=== PATIENT | female | born 1935 | race Caucasian/White ===

== ENCOUNTER 2022-06-15 11:15 | Inpatient (IN) | payer MEDICARE ==
[~2022-06-15] VITALS: Ht 152.4 cm; Wt 53.5 kg
--- NOTE | 2022-06-15 11:15 | NUR ---
BIB [facility] FROM HOME HAD A GLF IN THE BATHROOM C/O R HIP AND LEG PAIN -KO NO BLOOD THINNERS, 100MCG FENTANYL GIVEN PL SQL PROGRAMMER BY BRENDA. PLACED IN BED, AAOX4, BREATHING EVEN AND UNLABORED SATURATING AT 97%RA, IN PAIN 10/10 PS.
[2022-06-15] MEDS ORDERED: oxyCODONE/APAP (5/325 MG) 1 UDTAB TABLET ONE (11:41)
[2022-06-15] MEDS ORDERED: oxyCODONE/APAP (5/325 MG) 1 UDTAB TABLET PO ONE (12:00)
--- NOTE | 2022-06-15 12:11 | NUR ---
X-RAY TECH AT BEDSIDE
--- NOTE | 2022-06-15 12:36 | NUR ---
COVID SWAB COLLECTED AND SENT TO LAB
--- NOTE | 2022-06-15 13:07 | NUR ---
SENT X-RAY IMAGES TO DR. HOLDER
[2022-06-15 13:32] LABS: CALCIUM, SERUM 9.3 mg/dL (8.5-10.1); CARBON DIOXIDE 25 mmol/L (21-32); CHLORIDE 104 mmol/L (98-107); CREATININE 0.9 mg/dL (0.6-1.3); GLUCOSE 118 mg/dL (74-106); POTASSIUM 4.1 mmol/L (3.5-5.1); SODIUM SERUM 138 mmol/L (136-145); UREA NITROGEN, BLOOD 11 mg/dL (7-18)
[2022-06-15 13:33] LABS: BASOPHILS % (AUTO) 0.2 % (0.0-2.0); EOSINOPHILS % (AUTO) 0.2 % (0.0-6.0); HEMATOCRIT 41 % (33-45); HEMOGLOBIN 13.3 g/dL (11.5-14.8); LYMPHOCYTES # (AUTO) 0.8 K/uL (0.8-4.8); LYMPHOCYTES % (AUTO) 6.4 % (20.0-44.0); MEAN CORPUSCULAR HGB CONC 33 g/dl (31.0-36.0); MEAN CORPUSCULAR VOLUME 95 fL (82-100); MONOCYTES # (AUTO) 0.6 K/uL (0.1-1.30); MONOCYTES % (AUTO) 4.7 % (2.0-12.0); NEUTROPHILS # (AUTO) 11.2 K/uL (1.8-8.9); NEUTROPHILS % (AUTO) 88.5 % (43.0-81.0); PLATELET COUNT (AUTO) 245 K/uL (150-450); RED BLOOD CELL COUNT(AUTO) 4.29 MIL/uL (4.0-5.2); WHITE BLOOD COUNT (AUTO) 12.7 K/uL (4.3-11.0)
--- NOTE | 2022-06-15 13:45 | NUR ---
DEANA FOR ADMITION BED IN PT
[2022-06-15] MEDS ORDERED: MORPHINE SULFATE INJ 2 MG/ML DISP.SYRIN IV ONE (14:00)
[2022-06-15] MEDS ORDERED: GABA-532 PO (14:14)
[2022-06-15] MEDS ORDERED: MORPHINE SULFATE INJ 4 MG/ML DISP.SYRIN ONE (14:24)
--- NOTE | 2022-06-15 14:25 | NUR ---
ORTHOPICK SURGEN AT BED SIDE SPOOK WITH PT AND PLAN OF CARE AND SURGERY PLAN
--- NOTE | 2022-06-15 14:45 | NUR ---
HAND OFF TO NIDHI. Luis RN TO ROOM 116-1 VIA JOSELITO SAUL VS
--- NOTE | 2022-06-15 14:47 | NUR ---
ORTHOBIC PROVIDER AT BED SIDE OK PT TO EAT
--- NOTE | 2022-06-15 15:45 | NUR ---
RN ADMITTING NOTE PATIENT WAS TRANSFERRED FROM THE ER WITH PRIMARY DIAGNOSIS OF RIGHT FEMUR FRACTURE , ORIF PROCEDURE SCHEDULED FOR TOMORROW AT 11 AM , CONSENTS SIGNED BY DAUGHTER. PATIENT IS ALERT , ORIENTED TIMES 4 , B EFORE THE FRACTURE WAS AMBULATORY .PATIENT IS ON ROOM AIR , BREATHING NON LABORED , 02 SAT 96 %.PUREWEK WAS ATTACHED , BED IS AT LOWEST POSITION , CALL LIGHT WITHIN REACH , SIDE RAILA ARE UP , WILL CONTINUE TO MONITOR.
[2022-06-15] MEDS ORDERED: Z GUARD REMEDY 4 OZ OINT TP PRN (16:00)
[2022-06-15] MEDS ORDERED: MAG HYDROX/AL HYDROX/SIMETH 30 ML UDC PO PRN (16:00)
[2022-06-15] MEDS ORDERED: MAGNESIUM HYDROXIDE 30 ML UDC PO PRN (16:00)
[2022-06-15] MEDS ORDERED: ONDANSETRON HCL/PF 4 MG/2 ML VIAL IVP PRN (16:00)
[2022-06-15] MEDS ORDERED: ACETAMINOPHEN 325 MG TABLET PO PRN (16:00)
[2022-06-15 16:20] VITALS: BP 134/78
[2022-06-15] MEDS: IV NS 0.9% 1,000 ML IV PRN (16:51)
--- NOTE | 2022-06-15 18:42 | NUR ---
RN CLOSING NOTE PATIENT WAS TRANSFERRED FROM THE ER WITH PRIMARY DIAGNOSIS OF RIGHT FEMUR FRACTURE , ORIF PROCEDURE SCHEDULED FOR TOMORROW AT 11 AM , CONSENTS SIGNED BY DAUGHTER. PATIENT IS ALERT , ORIENTED TIMES 4 , ON ROOM AIR , BREATHING NON LABORED , 02 SAT 96 %. BED IS AT LOWEST POSITION , CALL LIGHT WITHIN REACH , SIDE RAILS ARE UP , WILL ENDORSE FORENSIC PHOTOGRAPHER NURSE TO FALLOW POC
--- NOTE | 2022-06-15 19:30 | NUR ---
MS RN OPENING NOTES - RECEIVED PATIENT SLEEPING, EASY TO AROUSE. DAUGHTER PRESENT IN ROOM. A/O X4, AMHARIC SPEAKING. BREATHING EVEN AND NON-LABORED ON ROOM AIR. NOT IN APPARENT DISTRESS. C/O RIGHT HIP AND KNEE PAIN 08/25. HAS LEFT FOREARM IV ACCESS #20G WITH NS RUNNING AT 75 ML/HR. NO S/S OF INFILTRATION NOTED. HAS PUREWICK CONNECTED TO CONTINUOUS SUCTION. SAFETY PRECAUTIONS IN PLACE: BED LOCKED AND IN LOW POSITION, SIDE RAILS UP X2, CALL LIGHT WITHIN REACH. WILL CONTINUE PLAN OF CARE.
[2022-06-15 20:00] VITALS: BP 141/82
[2022-06-15] MEDS: MORPHINE SULFATE INJ 2 MG/ML DISP.SYRIN IV PRN (20:09)
--- NOTE | 2022-06-15 20:25 | NUR ---
ADMINISTERED PRN MORPHINE 4MG R/T RIGHT HIP AND KNEE PAIN 01/25. WILL CONTINUE TO MANAGE PAIN ORDERED. C/O BEING UNABLE TO PEE, LAST TIME PATIENT URINATED WAS AT 0900. BLADDER SCAN SHOWED >450 ML URINE RETENTION. NOTIFIED HOSPITALIST ZULAY, AWAITING FOR RESPONSE. Addendum: 06/15/22 at 2055 by September ETHEL TRUONG ORDERED INSERT FC. NOTED AND CARRIED OUT.
[2022-06-16] MEDS: MORPHINE SULFATE INJ 2 MG/ML DISP.SYRIN IV PRN ×2 (01:12→06:38)
[2022-06-16 04:00] VITALS: BP 104/47
[2022-06-16 05:58] LABS: BASOPHILS % (AUTO) 0.2 % (0.0-2.0); EOSINOPHILS % (AUTO) 0.1 % (0.0-6.0); HEMATOCRIT 35 % (33-45); HEMOGLOBIN 11.6 g/dL (11.5-14.8); LYMPHOCYTES # (AUTO) 1.6 K/uL (0.8-4.8); LYMPHOCYTES % (AUTO) 16.8 % (20.0-44.0); MEAN CORPUSCULAR HGB CONC 34 g/dl (31.0-36.0); MEAN CORPUSCULAR VOLUME 94 fL (82-100); MONOCYTES # (AUTO) 0.9 K/uL (0.1-1.30); MONOCYTES % (AUTO) 9.5 % (2.0-12.0); NEUTROPHILS # (AUTO) 6.9 K/uL (1.8-8.9); NEUTROPHILS % (AUTO) 73.4 % (43.0-81.0); PLATELET COUNT (AUTO) 204 K/uL (150-450); RED BLOOD CELL COUNT(AUTO) 3.68 MIL/uL (4.0-5.2); WHITE BLOOD COUNT (AUTO) 9.5 K/uL (4.3-11.0)
[2022-06-16 06:30] LABS: CALCIUM, SERUM 8.4 mg/dL (8.5-10.1); CREATININE 0.7 mg/dL (0.6-1.3); MAGNESIUM 1.9 mg/dL (1.8-2.4); PHOSPHORUS 3.3 mg/dL (2.5-4.9); POTASSIUM 3.8 mmol/L (3.5-5.1)
[2022-06-16] MEDS: IV NS 0.9% 1,000 ML IV PRN ×2 (06:42→18:16)
--- NOTE | 2022-06-16 07:15 | NUR ---
MS RN CLOSING NOTES - PATIENT RESTING IN BED. ABLE TO VERBALIZE NEEDS. NO ACUTE DISTRESS THROUGHOUT THE NIGHT. NO CARDIAC OR RESPIRATORY DISTRESS. VERBALIZED PAIN RELIEF FROM PRN MORPHINE SULFATE 4MG. LEFT FOREARM IV ACCESS INTACT, PATENT AND FLUSHING. HAS INDWELLING GONSALES CATHETER DRAINING CLEAR EUN URINE TO BAG BY GRAVITY. ALL DUE MEDS GIVEN AND NEEDS ATTENDED. PAIN CONTROL DONE PER MD ORDER. KEPT ON NPO. SAFETY PRECAUTIONS MAINTAINED. WILL ENDORSE TO NEXT SHIFT FOR ELBERT.
[2022-06-16 07:23] LABS: BILIRUBIN,URINE NEGATIVE (NEGATIVE); COLOR,URINE YELLOW (YELLOW); LEUKOCYTE ESTERASE ,URINE NEGATIVE (NEGATIVE); NITRITE, URINE NEGATIVE (NEGATIVE); PROTEIN,URINE NEGATIVE (NEGATIVE); UGLUCOSE NEGATIVE (NEGATIVE); UROBILINOGEN,URINE 0.2 EU/dL (0.2)
--- NOTE | 2022-06-16 07:40 | NUR ---
ms rn opening note pt resting in bed. pt alert and oriented x3-4. pt currently npo due to pending surgery. able to verbalize needs. pt has iv access. iv intact, patent and flushing well. no signs of pain or discomofrt noted at this time..pt has lew cathether in place by gravity. all safety emasures in place. call light within reach, bed locked at lowest position. side rails up x2.
[2022-06-16 08:00] VITALS: BP 130/58
[2022-06-16] MEDS ORDERED: POLYMYXIN B SULFATE 500,000 UNITS ONE (08:03)
[2022-06-16] MEDS ORDERED: ANESTHESIA TRAY IN PYXIS 1 EA TRAY MC ONE (08:03)
[2022-06-16] MEDS ORDERED: BUPIVACAINE 0.25% 75 MG/30 ML VIAL ONE (08:04)
[2022-06-16 08:37] LABS: WBC,URINE 0-2 /HPF (0-3)
[2022-06-16 08:38] LABS: BACTERIA,URINE Few /HPF (None Seen); SQUAMOUS EPITHELIAL CELL,UR Few /HPF (None Seen)
[2022-06-16] MEDS ORDERED: FENTANYL PF 250MCG/5ML AMPUL ONE (10:02)
[2022-06-16] MEDS ORDERED: SUCCINYLCHOLINE CHLORIDE 20 MG/ML VIAL ONE (10:03)
[2022-06-16] MEDS ORDERED: VANCOMYCIN 1 GM VIAL ONE (11:24)
[2022-06-16] MEDS ORDERED: HYDROMORPHONE INJ 2 MG/ML DISP.SYRIN ONE (11:26)
[2022-06-16] MEDS ORDERED: TRANEXAMIC ACID 1,000 MG/10 ML VIAL ONE (12:07)
[2022-06-16] MEDS ORDERED: HYDROCODONE/APAP 10/325MG TABLET PO PRN (15:00)
--- NOTE | 2022-06-16 15:18 | NUR ---
rn note pt is alert and oriented x4. pt came back from surgery with bp 124/78, hr 168, 02 94%, on 2 l nasal cannula saturating at 94%. temp 97.8 notified of high hr. ordered ekg stat
[2022-06-16 16:00] VITALS: BP 124/78
--- NOTE | 2022-06-16 19:05 | NUR ---
LIVESTOCK RANCH HAND OPENING NOTE RECEIVED PATIENT IN BED, A/O X3-4, TRINIDADIAN SPEAKING, ON ROOM AIR, BREATHING EVEN AND UNLABORED. ON TELE MONITOR ST WITH HR OF 112. NO DISTRESS/DISCOMFORT NOTED. IV ACCESS ON LEFT FOREARM # 20G, NS RUNNING AT 75 ML/HR, INTACT AND PATENT. HAS F/C DRAINING TO GRAVITY CLEAR, YELLOW URINE. RIGHT KNEE IMMOBILIZER NOTED, DRESSING IS CLEAN AND DRY POST SURGERY. SAFETY MEASURES IN PLACE: BED LOCKED AND IN LOWEST POSITION, SIDE RAILS UP X2, CALL LIGHT WITHIN REACH.
--- NOTE | 2022-06-16 19:55 | NUR ---
MS RN CLOSING NOTE PT AWAKE, ALERT AND ORIENTED X3-4. PT HAS IV ACCESS, PATENT, INTACT AND FLUSHING WELL. PT ON TELE MONITOR SINUS RHYTM 89. PT HAS FC DRAINING TO GRAVITY. PT HAS KNEE IMMOBILIZER ON RIGHT LOWER EXTREMITY. DRESSING CLEAN AND DRY AND POST SURGERY. ALL SAFETY MEASURES IN PLACE. CALL LIGHT WITHIN REACH. BED LOCKED AT LOWEST POSITION. SDIE RAILS UP X2. BED ALARM ON. ENDORSED TO PARTS COUNTERPERSON RN FOR CONUTIY OF CARE.
[2022-06-16 20:00] VITALS: BP 120/52
[2022-06-16] MEDS: ANCEF 1 GM/50 ML D5W IV SCH ×2 (21:36)
[2022-06-17] VITALS: BP 125/58
[2022-06-17] MEDS: ANCEF 1 GM/50 ML D5W IV SCH ×4 (03:10→11:46)
[2022-06-17 04:00] VITALS: BP 131/62
--- NOTE | 2022-06-17 07:03 | NUR ---
STABILIZER OPERATOR CLOSING NOTE PATIENT IN BED, ASLEEP, BUT EASY TO AROUSE, ON ROOM AIR, BREATHING EVEN AND UNLABORED. ON TELE MONITOR ST WITH HR OF 112. NO DISTRESS/DISCOMFORT NOTED. IV ACCESS ON LEFT FOREARM # 20G, NS RUNNING AT 75 ML/HR, INTACT AND PATENT. HAS F/C DRAINING TO GRAVITY CLEAR, YELLOW URINE. RIGHT KNEE IMMOBILIZER NOTED, DRESSING IS CLEAN AND DRY POST SURGERY. ALL DUE MEDS WERE GIVEN AND NEEDS ATTENDED. SAFETY MEASURES MAINTAINED: BED LOCKED AND IN LOWEST POSITION, SIDE RAILS UP X2, CALL LIGHT WITHIN REACH. WILL ENDORSE TO ONCOMING NURSE FOR ELBERT.
[2022-06-17 07:07] LABS: BASOPHILS % (AUTO) 0.1 % (0.0-2.0); HEMATOCRIT 29 % (33-45); HEMOGLOBIN 9.5 g/dL (11.5-14.8); LYMPHOCYTES # (AUTO) 0.7 K/uL (0.8-4.8); LYMPHOCYTES % (AUTO) 5.8 % (20.0-44.0); MEAN CORPUSCULAR HGB CONC 33 g/dl (31.0-36.0); MEAN CORPUSCULAR VOLUME 94 fL (82-100); MONOCYTES # (AUTO) 1.1 K/uL (0.1-1.30); MONOCYTES % (AUTO) 9.1 % (2.0-12.0); NEUTROPHILS # (AUTO) 10.8 K/uL (1.8-8.9); PLATELET COUNT (AUTO) 157 K/uL (150-450); RED BLOOD CELL COUNT(AUTO) 3.05 MIL/uL (4.0-5.2); WHITE BLOOD COUNT (AUTO) 12.7 K/uL (4.3-11.0)
[2022-06-17 07:16] LABS: CALCIUM, SERUM 7.7 mg/dL (8.5-10.1); CREATININE 0.7 mg/dL (0.6-1.3); POTASSIUM 3.4 mmol/L (3.5-5.1)
--- NOTE | 2022-06-17 07:30 | NUR ---
ms rn opening note pt resting in bed. pt alert and oriented x3-4. kuwaiti speaking. able to verbalize needs. pt has iv access. iv intact, patent and flushing well. no signs of pain or discomofrt noted at this time..pt has lew cathether in place by gravity. all safety emasures in place. call light within reach, bed locked at lowest position. side rails up x2.
[2022-06-17] MEDS: ENOXAPARIN SODIUM 40 MG/0.4 ML DISP.SYRIN SQ SCH (07:41)
[2022-06-17] MEDS: HYDROCODONE/APAP 5/325MG TABLET PO PRN ×2 (07:59→18:37)
[2022-06-17 08:00] VITALS: BP 129/73
[2022-06-17] MEDS ORDERED: POTASSIUM CHLORIDE 20 MEQ POWDER PACKET NG SCH (10:30)
[2022-06-17] MEDS: IV NS 0.9% 1,000 ML IV PRN (11:46)
[2022-06-17 12:00] VITALS: BP 105/45
[2022-06-17 16:00] VITALS: BP 107/41
--- NOTE | 2022-06-17 19:40 | NUR ---
RN OPENING NOTE PATIENT AWAKE IN BED W/ DAUGHTER AT BEDSIDE. A/OX4. NO S/S OF DISTRESS, BREATHING WITHOUT DIFFICULTY ON 2L NC (FOR COMFORT). RFA #22 INTACT AND PATENT W/ NS 75ML/HR. TELE READS ST 110. SAFETY MEASURES IN PLACE: BED LOCKED AND AT LOWEST POSITION, MID-FOWLERS, RAILS UP X2, CALL SULLIVAN WITHIN REACH. WILL CONTINUE TO MONITOR PATIENT.
--- NOTE | 2022-06-17 19:47 | NUR ---
RN closing NOTE PATIENT AWAKE IN BED W/ DAUGHTER AT BEDSIDE. A/OX4. NO S/S OF DISTRESS, NO SIGNS OF PAIN OR DISCOMOFRT NOTED AT THIS TIME. RFA #22 INTACT, PATENT AND FLUSHING WELL. W/ NS 75ML/HR.ON TELE MONITOR READS SINUS TACHY. ALL SAFETY MEASURES IN PLACE: BED LOCKED AND AT LOWEST POSITION, SEMI-FOWLERS, SIDE RAILS UP X2, CALL SULLIVAN WITHIN REACH. BED ALARM ON. ENDORSED TO HOT MILL OBSERVER RN FOR CONTUITY OF CARE
[2022-06-17 20:00] VITALS: BP 125/66
[2022-06-18] VITALS: BP 118/64
[2022-06-18 04:00] VITALS: BP 120/59
[2022-06-18] MEDS: MORPHINE SULFATE INJ 2 MG/ML DISP.SYRIN IV PRN (04:29)
[2022-06-18] MEDS: IV NS 0.9% 1,000 ML IV PRN (06:06)
--- NOTE | 2022-06-18 06:26 | NUR ---
RN NOTE PATIENT HAS HX OF HR RANGING 120-130s OR LESS. PATIENT HAD RECENTLY BEEN MAINTAINING HR OF 88. PATIENT HAD BEEN GIVEN 4MG MORPHINE LESS THAN TWO HOURS PRIOR TO NOW D/T PAIN 01/25. PATIENT'S HR THEN SHOT FROM 88 TO 150s - MAINTAINING FOR ABOUT A FEW MINUTES. HR DROPPED TO 88 AGAIN, THEN BACK TO 160. DR. FRAIRE NOTIFIED. ORDER GIVEN FOR STAT EKG. PATIENT STATES NO CHEST PAIN OR PAIN OF ANY SORT CURRENTLY.
--- NOTE | 2022-06-18 06:46 | NUR ---
RN NOTE EKG REVEALS SUPRAVENTRICULAR TACHYCARDIA PER RT. DR. FRAIRE NOTIFIED. PER ON-CALL, JUNO, EKG TO BE FOWARDED TO [facility]. INFORMATION FORWARDED TO [facility]. PER KIMBERLY, DR. MAJANO IS TO BE CONTACTED. GRETEL REFERRED ME TO YVON. YVON ORDERED ADENOSINE 6MG THEN 12MG IV.
[2022-06-18] MEDS ORDERED: ADENOSINE 6 MG/2 ML VIAL ONE (06:54)
--- NOTE | 2022-06-18 06:58 | NUR ---
RN NOTE PATIENT'S HR HAS RETURNED TO 88. GENE FROM ICU AND CN RASHEEDA STATED NOT TO GIVE. YVON CONTACTED REGARDING CURRENT HR AND ADENOSINE NOT BEING GIVEN. YVON REPLIED THAT HE WILL BE COMING TO SEE THE PATIENT AT BEDSIDE SHORTLY. PATIENT O/W STABLE; PT CONTINUES TO DENY ANY PAIN - ANY CHEST PAIN - OF ANY SORT.
[2022-06-18] MEDS ORDERED: ADENOSINE 6 MG/2 ML VIAL IVP ONE ×2 (07:00)
--- NOTE | 2022-06-18 07:12 | NUR ---
RN CLOSING NOTE PATIENT ASLEEP IN BED. A/OX4. NO S/S OF DISTRESS, BREATHING WITHOUT DIFFICULTY ON 2L NC. RFA #22 INTACT AND PATENT W/ NS 75ML/HR. TELE READS SR 88. SAFETY MEASURES IN PLACE: BED LOCKED AND AT LOWEST POSITION, MID-FOWLERS, RAILS UP X2, CALL SULLIVAN WITHIN REACH. WILL CONTINUE TO MONITOR PATIENT.
--- NOTE | 2022-06-18 07:30 | NUR ---
VP AD SALES WEST AM NOTES RECEIVED PT IN BED, AAO X 3, AMHARIC SPEAKING. ON ROOM AIR O2 SAT 96%. RESPIRATION UNLABORED. SR HR 94 ON MONITOR. DENIES CHEST PAIN/DISCOMFORT. S/P ORIF FOR RT FEMUR FRACTURE ON 06/16/[address] HOLDER. WITH IMMOBILIZER IN PLACE. RFA G22 WITH NS AT 75 ML/HR INFUSING WELL. SITE CLEAR. GONSALES CATH IN PLACE, WITH YELLOW COLORED URINE DRAINING. SOFT DIET. FOR PHYSICAL THERAPY. POC DISCUSSED. VERBALIZED UNDERSTANDING. SAFETY MEASURES IN PLACE. BED LOW LOCKED, CALL LIGHT WITHIN REACH WILL CONT TO MONITOR. PER WELL HEAD PUMPER, HAD EPISODES OF SVT. DR. SANZ AWARE AND ON HIS WAY TO SEE PT.
[2022-06-18 08:00] VITALS: BP 101/44
[2022-06-18] MEDS ORDERED: AMIODARONE 150 MG in IV D5W 100 ML IV ONE (08:00)
[2022-06-18 08:02] LABS: CALCIUM, SERUM 7.7 mg/dL (8.5-10.1); CARBON DIOXIDE 27 mmol/L (21-32); CHLORIDE 106 mmol/L (98-107); CREATININE 0.7 mg/dL (0.6-1.3); GLUCOSE 129 mg/dL (74-106); POTASSIUM 3.3 mmol/L (3.5-5.1); SODIUM SERUM 139 mmol/L (136-145); UREA NITROGEN, BLOOD 7 mg/dL (7-18)
[2022-06-18] MEDS: ENOXAPARIN SODIUM 40 MG/0.4 ML DISP.SYRIN SQ SCH (08:07)
--- NOTE | 2022-06-18 08:08 | NUR ---
RN NOTES DR. SANZ AT BEDSIDE. NEW ORDER RECEIVED AMIO DRIP AMIODARONE LOADING DOSE STARTED.
[2022-06-18] MEDS: AMIODARONE 450 MG in IV D5W 241 ML IV PRN ×2 (08:33→14:36)
--- NOTE | 2022-06-18 08:33 | NUR ---
RN NOTES AMIODARONE DRIP STARTED 1 MG/ML [33.3 ML/HR] FOR 6 HOURS
--- NOTE | 2022-06-18 09:30 | NUR ---
RN NOTES DUE MEDS GIVEN
[2022-06-18] MEDS: POTASSIUM CHLORIDE 20 MEQ TAB.PRT.SR PO SCH ×2 (09:34→10:16)
[2022-06-18 09:38] LABS: THYROID STIMULATING HORMONE 0.161 uIU/mL (0.358-3.74)
[2022-06-18] MEDS ORDERED: Hydrocodone/Apap 5/325MG PO (10:11)
[2022-06-18] MEDS ORDERED: ENOX40DI SQ (10:11)
[2022-06-18 12:00] VITALS: BP 99/45
--- NOTE | 2022-06-18 14:36 | NUR ---
RN NOTES AMIODARONE DRIP STARTED 0.5 MG/ML [16.6 ML/HR] FOR 18 HOURS. ENDS AT 0836 DOMINIQUE 06/19/22
[2022-06-18 16:00] VITALS: BP 99/53
--- NOTE | 2022-06-18 16:16 | NUR ---
RN NOTES DR. SANZ NOTIFIED OF BLE DUPLEX ULTRASOUND RESULT. NO NEW ORDERS RECEIVED.
--- NOTE | 2022-06-18 18:59 | NUR ---
INCUBATOR MACHINE OPERATOR CLOSING NOTES PT IN BED, AAO X 3, DJIBOUTIAN SPEAKING. ON ROOM AIR O2 SAT >96%. RESPIRATION UNLABORED. SR HR 96 ON MONITOR. DENIES CHEST PAIN/DISCOMFORT. S/P ORIF FOR RT FEMUR FRACTURE ON 06/16/[address] HOLDER. WITH IMMOBILIZER IN PLACE. RFA G22 WITH NS AT 75 ML/HR INFUSING WELL. SITE CLEAR. GONSALES CATH IN PLACE, WITH YELLOW COLORED URINE DRAINING. TOTAL OUTPUT 600 ML. SOFT DIET. SAFETY MEASURES IN PLACE. BED LOW LOCKED, CALL LIGHT WITHIN REACH WILL ENDORSE TO NEXT SHIFT. ONGOING AMIODARONE DRIP AT 16.6 ML/HR. [END AT 0836 06/19/22]
[2022-06-18 20:00] VITALS: BP 126/66
--- NOTE | 2022-06-18 20:00 | NUR ---
CLAIM ADMINISTRATOR CLOSING NOTES RECEIVED PT IN BED, AAO X 3, FAROESE SPEAKING. ON ROOM AIR O2 SAT >97%. NO SOB NO DISTRESS NOTED RESPIRATION UNLABORED. SR HR 86 ON MONITOR. DENIES CHEST PAIN/DISCOMFORT. S/P ORIF FOR RT FEMUR WITH IMMOBILIZER IN PLACE. RFA G22 WITH NS AT 75 ML/HR INFUSING WELL. GONSALES CATH IN PLACE, WITH YELLOW COLORED URINE DRAINING. REMAIN ON AMIODARONE DRIP AT 0.5MG /16.6 CC/HR ON PROGRESS NO ASE NOTED. SAFETY MEASURES IN PLACE. BED LOW LOCKED, CALL LIGHT WITHIN REACH WILL ENDORSE WILL CONTINUE TO MONITOR PTS. Addendum: 06/19/22 at 0655 by RASHEEDA KIRBY RN THIS IS THE OPENING NOTES NOT THE CLOSING
[2022-06-19] VITALS: BP 132/85
[2022-06-19] MEDS: IV NS 0.9% 1,000 ML IV PRN (00:06)
[2022-06-19 04:00] VITALS: BP 125/85
--- NOTE | 2022-06-19 06:51 | NUR ---
SET UP MOLD TECHNICIAN CLOSING NOTES REMAIN PT IN BED, AAO X 3, NIGERIAN SPEAKING. ON ROOM AIR O2 SAT >96%. RESPIRATION UNLABORED. SR HR 86 ON MONITOR. DENIES CHEST PAIN/DISCOMFORT. S/P ORIF . WITH IMMOBILIZER IN PLACE. RFA G22 WITH NS AT 75 ML/HR INFUSING WELL. SITE CLEAR. GONSALES CATH IN PLACE, WITH YELLOW COLORED URINE DRAINING. TOTAL OUTPUT 400 ML. SAFETY MEASURES IN PLACE. BED LOW LOCKED, CALL LIGHT WITHIN REACH.ONGOING AMIODARONE DRIP AT 16.6 ML/HR. [END AT 0836 06/19/22]WILL ENDORSE TO NEXT SHIFT.
[2022-06-19 07:12] LABS: BASOPHILS % (AUTO) 0.2 % (0.0-2.0); EOSINOPHILS % (AUTO) 0.4 % (0.0-6.0); HEMATOCRIT 23 % (33-45); HEMOGLOBIN 7.7 g/dL (11.5-14.8); LYMPHOCYTES # (AUTO) 1.2 K/uL (0.8-4.8); MEAN CORPUSCULAR HGB CONC 34 g/dl (31.0-36.0); MEAN CORPUSCULAR VOLUME 94 fL (82-100); MONOCYTES # (AUTO) 0.8 K/uL (0.1-1.30); NEUTROPHILS # (AUTO) 6.4 K/uL (1.8-8.9); NEUTROPHILS % (AUTO) 75.4 % (43.0-81.0); PLATELET COUNT (AUTO) 171 K/uL (150-450); RED BLOOD CELL COUNT(AUTO) 2.42 MIL/uL (4.0-5.2); WHITE BLOOD COUNT (AUTO) 8.4 K/uL (4.3-11.0)
--- NOTE | 2022-06-19 07:25 | NUR ---
RN note Patient is alert and conscious, without active complaint. groundwater monitoring technician showed SR with HR 86/min. Amiodarone drip running at 16.6ml/hr, no signs of phlebitis over IV site. Strong over right dorsalis pedis, neurovascular was intact. Call brown is placed within reach, bed is locked and placed in the lowest position. All safety measures have been implemented. Will continue monitoring and care.
[2022-06-19 07:45] LABS: ALBUMIN 2.1 g/dL (3.4-5.0); BILIRUBIN,TOTAL 0.6 mg/dL (0.2-1.0); CALCIUM, SERUM 7.6 mg/dL (8.5-10.1); CREATININE 0.8 mg/dL (0.6-1.3); MAGNESIUM 2.1 mg/dL (1.8-2.4); PHOSPHORUS 1.2 mg/dL (2.5-4.9); POTASSIUM 3.6 mmol/L (3.5-5.1); TOTAL PROTEIN, SERUM 5.8 g/dL (6.4-8.2)
[2022-06-19 08:00] VITALS: BP 107/50
[2022-06-19] MEDS: POTASSIUM CHLORIDE 20 MEQ TAB.PRT.SR PO SCH ×2 (08:43→10:34)
[2022-06-19] MEDS: ENOXAPARIN SODIUM 40 MG/0.4 ML DISP.SYRIN SQ SCH (08:44)
[2022-06-19] MEDS ORDERED: METO50TA16 PO (11:26)
[2022-06-19] MEDS: METOPROLOL TARTRATE 50 MG TABLET PO SCH ×2 (11:44→17:04)
[2022-06-19 12:00] VITALS: BP 95/59
--- NOTE | 2022-06-19 15:00 | NUR ---
Removed lew at 15:00, await urination.
[2022-06-19 16:00] VITALS: BP 131/67
[2022-06-19 17:04] VITALS: BP 131/67
[2022-06-19] MEDS ORDERED: MINERAL OIL 133 ML (PYXIS) 1 EA ENEMA RC ONE (18:30)
[2022-06-19] MEDS ORDERED: BISACODYL SUPP (10 MG) 10 MG/SUPP.RECT SUPP.RECT RC PRN (18:30)
--- NOTE | 2022-06-19 18:37 | NUR ---
Received news that patient is for discharge at 1630. Discharge documents are prepared. Handover given to RN Perri. Patient did not pass urine yet, BS showed 142mL. Clarified with patient, did not pass stool since 06/15. Informed Dr. Garcia, who ordered dulcolax suppository. The above information was given to SNF RN.
--- NOTE | 2022-06-19 19:30 | NUR ---
PAPIER MACHE MOLDER NOTE RECEIVED PATIENT FROM AM NURSE; PATIENT IS FOR DISCHARGED AT [facility]. PATIENT IS ALERT AND ORIENTED X 4, ABLE TO MAKE NEEDS KNOWN; STABLE ON ROOM AIR; VITAL SIGNS TAKEN; NO COMPLAINTS OF PAIN AND DISCOMFORT AT THIS TIME; WILL CONTINUE TO MONITOR WHILST HERE
--- NOTE | 2022-06-19 20:00 | NUR ---
BAR EXAMINER NOTE CHARGE NURSE INFORMED THAT AMBULANCE WILL BE LATE AND WILL BE AROUND 8:30-9PM; PATIENT AND DAUGHTER AT BEDSIDE INFORMED; WILL CONTINUE TO MONITOR
--- NOTE | 2022-06-19 23:11 | NUR ---
ANATOMIC PATHOLOGISTCONTRACTS ANALYST NOTE AMBULANCE ARRIVED AT 2250H; REPORT WAS GIVEN TO EMT AND REPORT WAS GIVEN BY AM NURSE AT FACILITY; PATIENT WAS IN STABLE CONDITION. PUREWICK CATHETER REMOVED, 2 IV ACCESSES ALSO REMOVED. EXIT FOLDER HANDED TO EMT. PATIENT LEFT UNIT AT 2305H VIA GURNEY WITH 2 CORSET FITTER AND DAUGHTER.
== END 2022-06-19 23:05 | DRG 481 ==
LOC: ER 11:17 → MEDSG1 14:46 → TELE1 06-16 21:12 → TELE-TD 06-18 08:54 → TELE1 06-19 09:35
PROVIDERS: ADMIT Internal Medicine; ATTEND Internal Medicine
PROC: 0QSB06Z Reposition Right Lower Femur with Intramedullary Internal Fixation Device, Open Approach (ICD-10-PCS; principal; 2022-06-16)
DX: S72.331A Displaced oblique fracture of shaft of right femur, initial encounter for closed fracture (principal); I47.1 Supraventricular tachycardia; I48.92 Unspecified atrial flutter; R65.10 Systemic inflammatory response syndrome (SIRS) of non-infectious origin without acute organ dysfunction; W01.0XXA Fall on same level from slipping, tripping and stumbling without subsequent striking against object, initial encounter; Y92.002 Bathroom of unspecified non-institutional (private) residence as the place of occurrence of the external cause; Z20.822 Contact with and (suspected) exposure to COVID-19; G62.9 Polyneuropathy, unspecified
CPT/HCPCS: 36415; 71045-TC; 73501; 73552; 73564-TC; 73700-TC; 76536-TC; 80048-TC; 80053-TC; 81001; 83735-TC; 84100-TC; 84439-TC; 84443-TC; 84484-TC; 85025-TC; 85730-TC; 86850-TC; 87081-TC; 93307-TC; 93970-TC; 97112-TC; 97116-TC; 97530-TC; A4223; A4649; A6253; C1713; C9803; G0378; J0153; J0282; J0330; J0690; J1170; J1650; J2270; J2405; J2704; J2765; J3010; J3370; J3490; J7030; J7060; L1830